=== PATIENT | female | born 1935 | race Caucasian/White ===

== ENCOUNTER 2016-07-31 05:20 | Day surgery (SDC) | payer MEDICARE, OTHER ==
[2016-07-29 09:52] LABS: BASOPHILS 0.2 % (0.0-2.0); EOSINOPHILS 0.2 % (0-7); HEMATOCRIT 36.8 % (36.0-48.0); HEMOGLOBIN 12.1 g/dL (12-16); IMMATURE GRANULOCYTES 0.5 % (0-5); MCH 35.4 pg (26.0-34.0); MCHC 32.9 g/dL (31.0-37.0); MCV 107.6 fL (80.0-100.0); MEAN PLATELET VOLUME 8.4 fL (7.4-10.4); MONOCYTES 5.9 % (2-11); NEUTROPHILS 67.2 % (40-80); RBC 3.42 10x6/uL (4.00-5.40); RDW 13.9 % (11.5-14.5); WBC 4.4 10x3/uL (4.8-10.8)
[2016-07-29 10:00] LABS: PLATELET COUNT 151 10x3/uL (130-400)
[2016-07-29 10:37] LABS: APTT 25.5 SECONDS (22.8-39.4)
[2016-07-29 10:39] LABS: ANION GAP 8.5 mmol/L (8-16); CALCIUM 9.3 mg/dL (8.5-10.1); CARBON DIOXIDE 35.1 mmol/L (21.0-32.0); CREATININE - SERUM 0.8 mg/dL (0.6-1.3); POTASSIUM - SERUM 3.6 mmol/L (3.5-5.1)
[~2016-07-31] VITALS: Ht 167.6 cm; Wt 53.5 kg
[~2016-07-31 05:20] MED LIST: EVISTA60 MG PO; FERROUS FUMARA324 MG PO; FLAGYL500 MG PO; HYDROCODONE-APA1 TAB PO; LIPITOR20 MG PO; SUPER B COMPLE150 MG PO; VITAMIN B-121000 MCG PO; VITAMIN D250000 UNIT PO; ZESTRIL10 MG PO
[2016-07-31 06:52] VITALS: BP 123/71; Ht 167.6 cm; Wt 53.5 kg
--- NOTE | 2016-07-31 08:48 | NUR ---
BOVIE PAD FOR EARBE ON LEFT THIGH LOT [id number] EXP 05-06-2018. BOVIE SITE CLEAR
--- NOTE | 2016-07-31 09:57 | NUR ---
4867-RECEIVED PT FROM PACU AWAKE AND ALERT, VSS. NO DISTRESS OR N/V FULL LIQUID TRAY GIVEN FAMILY AT BEDSIDE WILL CONTINUE TO MONITOR CALL LIGHT IN REACH
--- NOTE | 2016-07-31 10:31 | NUR ---
1020-PT TOLERATING FULL LIQUID TRAY WELL WITHOUT ANY N/V WILL CONTINUE TO MONITOR
--- NOTE | 2016-09-11 10:17 | HP ---
PATIENT: SEBASTIAN COY MEDICAL RECORD: [id number] ACCOUNT: [id number] LOCATION:[facility] : 35 ADMISSION DATE: 07/31/16 HISTORY AND PHYSICAL EXAMINATION CHIEF COMPLAINT: Duodenal polyp. HISTORY OF PRESENT ILLNESS: The patient has undergone EGDs. I have personally reviewed the endoscopic photos. I personally reviewed the endoscopic report. The patient was found to have polyps in the second portion of the duodenum. During her endoscopy on 06/13/2016, the polyp was biopsied and it revealed one of two fragments which showed a small focus of low-grade dysplasia/residual adenoma. The polyps were treated with the hot biopsy forceps polypectomy technique. Prior to that, in December 2014, a polyp at the second portion of the duodenum was a duodenal adenoma with no high-grade dysplasia or malignancy. I am going to plan for an EGD with polypectomy utilizing argon plasma furniture inspector. SOCIAL HISTORY: Nonsmoker. REVIEW OF SYSTEMS: No angina or myocardial infarction. No CABG. No hypertension. No CVA or seizures. No diabetes or thyroid problems. PAST MEDICAL AND SURGICAL HISTORY: Breast cancer and hyperlipidemia. HOME MEDICINES: Lipitor as well as vitamin D. ALLERGIES: SULFA. PHYSICAL EXAMINATION: GENERAL: The patient does not appear acutely ill. She does not appear chronically ill. VITAL SIGNS: Reviewed. HEAD: External ears appear normal. EYES: Extraocular movements are intact. NECK: Trachea is midline. CHEST: No intercostal retractions. PULMONARY: Nonlabored and no stridor. ABDOMEN: Nontender. EXTREMITIES: No peripheral cyanosis. INTEGUMENT: No rash and no ulcerations. PSYCHIATRIC: Normal affect. IMPRESSION: Duodenal adenoma with low-grade atypia. PLAN: EGD with duodenal polypectomy utilizing the argon plasma furniture inspector, which is a radiofrequency type of ablation of a benign duodenal process. TRANSINT:[id number] Voice Confirmation ID: [id number] DOCUMENT ID: [id number] HISTORY AND PHYSICAL [id number] SEBASTIAN COY ROBERT MD at 1017 CC: VINNY SIMMONS MD, FRANTZ RUGGIERO MD and DIAMOND WOOD [phone] DICTATION DATE: 07/31/16 0935 ROUTE DRIVER SALESPERSON: 07/31/16 0959 [facility] 07/31/16 [id number] [place] [address]
--- NOTE | 2016-09-11 10:17 | OP ---
PATIENT NAME: SEBASTIAN COY MEDICAL RECORD: [id number] :35 LOCATION:D.OPS ADMISSION DATE: SURGEON: EDEL COATES MD DATE OF OPERATION: 07/31/2016 PREOPERATIVE DIAGNOSES: Recent history of a duodenal adenoma with low grade atypia. POSTOPERATIVE DIAGNOSES: Recent history of a duodenal adenoma with low-grade atypia with minimal regrowth of the polyps. PROCEDURE: Esophagogastroduodenoscopy with duodenal polypectomies utilizing the argon plasma malt liquors sales supervisor. SURGEON: Edel Coates MD LEATHER CRAFTSMAN: None. BLOOD LOSS: Minimal. ANESTHESIA: General. COMPLICATIONS: None. It appears that Dr. Boston likely removed the majority of the polyp. There was some polypoid tissue in the second portion of duodenum across from the ampulla and this was a very small area. There was also another area that was at 12 o'clock and this was on a fold. ENDOSCOPIC COURSE: The patient was conveyed to the operating room electively on 07/31/2016. General anesthesia was induced by the anesthesia staff. A bite block was inserted. A gastroscope was inserted into the mouth. It was advanced easily into the hypopharynx. The esophagus was easily intubated as were the stomach and duodenum. Upon withdrawal, retroflexed and angulus views were obtained. There were no antral biopsies obtained. I advanced again into the duodenum. I carefully scrutinized the duodenal alex. The biopsy had an area that appeared to be a polyp. There was another area that was difficult to reach with the biopsy forceps, but I ablated both of these areas utilizing the argon plasma malt liquors sales supervisor, utilizing the esophageal setting in the forced mode. No other polypoid tissue appeared. The ampulla Vater was easily identifiable. The endoscope was then withdrawn under direct vision. I will see the patient in my office in 2-3 weeks. I will plan for her next EGD with the argon plasma malt liquors sales supervisor to take place in 1 year. TRANSINT:[id number] Voice Confirmation ID: [id number] DOCUMENT ID: [id number] OPERATIVE REPORT [id number] ZBIGNIEWSEBASTIANEDEL JI MD at 1017 CC: VINNY SIMMONS MD, FRANTZ BOSTON MD and DIAMOND WOOD [phone] DICTATION DATE: 07/31/16 0939 SIX PACK PACKER: 07/31/16 1029 [facility] 07/31/16 [facility] [address] [facility] [place] [address]
== END 2016-07-31 11:10 | disposition home or self-care (01) ==
LOC: D.OPS 05:20 → D.PAN 08:00 → D.OPS 08:00
PROVIDERS: Anesthesiology
DX: K31.7 Polyp of stomach and duodenum (principal); E78.5 Hyperlipidemia, unspecified; Z85.3 Personal history of malignant neoplasm of breast; Z79.899 Other long term (current) drug therapy; Z88.2 Allergy status to sulfonamides

== ENCOUNTER 2017-08-01 05:14 | Day surgery (SDC) | payer MEDICARE, OTHER ==
[2017-07-31 11:57] LABS: HEMOGLOBIN 13.4 g/dL (12-16); MCHC 33.5 g/dL (31.0-37.0); MCV 104.4 fL (80.0-100.0); MEAN PLATELET VOLUME 8.6 fL (7.4-10.4); PLATELET COUNT 176 10x3/uL (130-400); RBC 3.83 10x6/uL (4.00-5.40); WBC 4.7 10x3/uL (4.8-10.8)
[2017-07-31 12:05] LABS: APTT 24.5 SECONDS (22.8-39.4)
[2017-07-31 12:09] LABS: ANION GAP 11.7 mmol/L (8-16); CARBON DIOXIDE 29.8 mmol/L (21.0-32.0); CREATININE - SERUM 0.8 mg/dL (0.6-1.3); INR 1.01 (0.85-1.17); POTASSIUM - SERUM 3.5 mmol/L (3.5-5.1); PROTIME 12.9 SECONDS (11.6-15.0)
[2017-07-31 13:02] LABS: BASOPHILS 1 % (0-2); LYMPHOCYTES 25 % (15-50); MONOCYTES 3 % (2-11); NEUTROPHILS 62 % (40-80); PLATELET ESTIMATE NORMAL
[~2017-08-01] VITALS: Ht 167.6 cm; Wt 57.3 kg
--- NOTE | ~2017-08-01 | OP ---
PATIENT NAME: SEBASTIAN COY MEDICAL RECORD: [id number] :35 LOCATION:D.OPS ADMISSION DATE: SURGEON: EDEL COATES MD DATE OF OPERATION: 08/01/2017 PREOPERATIVE DIAGNOSIS: History of duodenal adenoma. POSTOPERATIVE DIAGNOSES: History of duodenal adenoma with minimal persistence or regrowth of the polyp in the second portion of the duodenum. The sessile polyp was about 9 mm in length. PROCEDURES: Esophagogastroduodenoscopy with cold endoscopic biopsies of the polyp and polypectomy with the argon plasma systems support engineer utilizing the esophageal setting in the forced mode. SURGEON: Edel Coates MD LAW SECRETARY: None. BLOOD LOSS: Minimal. ANESTHESIA: General. COMPLICATIONS: None. The risks, possible complications, and alternatives of the procedure were explained to the patient. She elects to proceed. OPERATIVE COURSE: The patient was conveyed to the operating room electively on 08/01/2017. General anesthesia was induced by the anesthesia staff. A bite block was inserted. A gastroscope was inserted into the mouth. It was advanced easily into the hypopharynx. The esophagus was easily intubated as were the stomach and duodenum. Upon withdrawal, retroflexed and angulus views were obtained. Biopsies of the duodenal polyp were obtained. Then, I ablated the polypoid base utilizing the argon plasma systems support engineer. The endoscope was then withdrawn under direct vision. I will see the patient in my office in 2-3 weeks. It is very likely at that time I will return the patient's endoscopic surveillance back over to her wash helper, Dr. Boston. TRANSINT:[id number] Voice Confirmation ID: [id number] DOCUMENT ID: [id number] EDEL COATES MD at 1131 CC: FRANTZ BOSTON MD and DIAMOND WOOD [phone] DICTATION DATE: 08/01/17 1414 RETAIL COVERAGE MERCHANDISER: 08/01/17 1451 [facility] 08/01/17 [address] [place] [address]
--- NOTE | ~2017-08-01 | HP ---
PATIENT: SEBASTIAN COY MEDICAL RECORD: [id number] ACCOUNT: [id number] LOCATION:[facility] : 35 ADMISSION DATE: 08/01/17 HISTORY AND PHYSICAL EXAMINATION CHIEF COMPLAINT: Polyp. HISTORY OF PRESENT ILLNESS: The patient has a history of duodenal adenoma. I have personally reviewed the pathology report from the past. She is to undergo EGD with polypectomy of any recurrent or persistent polyp and then treatment with the argon plasma rotary helper, which is a radiofrequency type of ablation. The risks, possible complications and alternatives to procedure were discussed with the patient. She elects to proceed. HOME MEDICATIONS: Evista as well as Lipitor. ALLERGIES: No known drug allergies. PAST MEDICAL AND SURGICAL HISTORY: Hyperlipidemia, history of breast cancer, history of EGD and polypectomies. REVIEW OF SYSTEMS: Negative for heart disease, negative for high blood pressure. Negative for fainting or seizures. Negative for rheumatic fever, negative for diabetes, negative for thyroid problems, negative for respiratory disease. Negative for shortness of breath. SOCIAL HISTORY: Nonsmoker. PHYSICAL EXAMINATION: GENERAL: The patient does not appear acutely ill. She does not appear chronically ill. VITAL SIGNS: Reviewed. The entire physical examination was performed in the presence of a female nurse. EARS: External ears appear normal. EYES: Extraocular movements are intact. NECK: Trachea is midline. CHEST: No intercostal retractions. PULMONARY: Nonlabored, no stridor. ABDOMEN: Nontender. EXTREMITIES: No peripheral cyanosis. INTEGUMENT: No rash. IMPRESSION: History of duodenal adenoma. PLAN: EGD with polypectomy and then treatment of any polyp with the argon plasma rotary helper, which is a radiofrequency type of ablation of a benign GI process. TRANSINT:[id number] Voice Confirmation ID: [id number] DOCUMENT ID: [id number] HISTORY AND PHYSICAL [id number] SEBASTIAN COY ROBERT MD at 1131 CC: FRANTZ RUGGIERO MD, JOHN SIMENTAL MD and DIAMOND WOOD [phone] DICTATION DATE: 08/01/17 1408 BLANKET INSPECTOR: 08/01/17 1503 [facility] 08/01/17 [place] [address]
[~2017-08-01 05:14] MED LIST changes: +PROBIOTIC1 EAC1 PO
[2017-08-01 10:55] VITALS: BP 127/48; Ht 167.6 cm; Wt 57.3 kg
== END 2017-08-01 15:30 | disposition home or self-care (01) ==
LOC: D.OPS 05:14 → D.PAN 08:00 → D.OPS 09:30 → D.PAN 10:05 → D.OPS 10:40
PROVIDERS: Anesthesiology
DX: D13.2 Benign neoplasm of duodenum (principal); F17.200 Nicotine dependence, unspecified, uncomplicated; Z01.812 Encounter for preprocedural laboratory examination